=== PATIENT | female | born 1995 | race Caucasian/White ===

== ENCOUNTER 2017-02-13 14:55 | Emergency (ER) | payer OTHER ==
[~2017-02-13] VITALS: Ht 185.4 cm; Wt 85.7 kg
[~2017-02-13 14:55] MED LIST: ADVAIR HFA120 INHALA; BACTRIM,SEPT1 TABLET PO; BUPROPION XL150 MG PO; CLINDAMYCIN HC300 MG PO; DESYREL 150 MG150 MG PO; FOCALIN XR10 MG PO; HYDROCODON-ACE1 EAC7 PO; IBUPROFEN800 MG PO; INTUNIV4 MG PO; LATUDA20 MG PO; LATUDA40 MG PO; MILK OF MAGN PO; MOBIC15 MG PO; MOTRIN600 MG PO; MOTRIN800 MG PO; MULTI-VITAMIN1 EAC3 PO; NAPROXEN500 MG PO; NUVARING VAGIN1 EACH VG; OMEPRAZOLE20 MG PO; PERCOCET 5/31 TABLET PO; PRENATA CHEWAB1 EACH PO; PRENATAL GUMMIES PO; PRILOSEC20 MG PO; PYRIDIUM200 MG PO; TRAZODONE HCL100 MG PO; TRAZODONE HCL50 MG PO; VENTOLIN HFA18 GM IH; VYVANSE20 MG PO; VYVANSE40 MG PO; WELLBUTRIN XL150 MG PO; ZITHROMAX Z-PA250 MG PO; ZOFRAN4 MG PO; ZYRTEC10 M3 PO
[2017-02-13 20:28] LABS: ADD MIUA? YES; BILIRUBIN NEGATIVE; BLOOD NEGATIVE; COLOR YELLOW ((YELLOW)); GLUCOSE (STRIP) NEGATIVE; KETONES 80; LEUKOCYTES LARGE; NITRITE NEGATIVE; PROTEIN (STRIP) NEGATIVE; SPECIFIC GRAVITY 1.006 (1.000-1.030); UROBILINOGEN 0.2 MG/DL (0.2-1.0)
[2017-02-13 21:03] LABS: BACTERIA RARE /HPF; EPITHELIAL CELLS 1+ /HPF; MUCUS TRACE /LPF; RED BLOOD CELLS 0-5 /HPF (0-5); UCUL ADDED? NO
[2017-02-13 21:36] VITALS: BP 115/75
== END 2017-02-13 21:37 | disposition home or self-care (01) ==
LOC: EME 14:55
PROVIDERS: Physician Assistant
DX: O26.893 Other specified pregnancy related conditions, third trimester (principal); N76.89 Other specified inflammation of vagina and vulva; O99.513 Diseases of the respiratory system complicating pregnancy, third trimester; J45.909 Unspecified asthma, uncomplicated; O99.333 Smoking (tobacco) complicating pregnancy, third trimester; F17.200 Nicotine dependence, unspecified, uncomplicated; Z3A.33 33 weeks gestation of pregnancy; Z88.0 Allergy status to penicillin
CPT/HCPCS: 81003; 87086; 99281; 99283

== ENCOUNTER 2017-03-09 14:38 | Outpatient (CLI) | payer OTHER ==
[2017-03-09 14:54] VITALS: BP 89/56
[2017-03-09 15:05] VITALS: BP 98/60
== END 2017-03-09 15:45 | disposition home or self-care (01) ==
LOC: LDRP-OP 14:38 → 2WEST 14:39 → LDRP-OP 04-29 13:55
DX: O47.1 False labor at or after 37 completed weeks of gestation (principal); Z3A.37 37 weeks gestation of pregnancy
CPT/HCPCS: 59025; G0378

== ENCOUNTER 2017-03-28 01:09 | Inpatient (IN) | payer OTHER ==
[2017-03-28] VITALS (10 sets, daily range): BP systolic 102–128; BP diastolic 52–77
[~2017-03-28] VITALS: Ht 185.4 cm; Wt 88.0 kg
[2017-03-28 04:06] LABS: BASOPHIL COUNT 0.1 K/uL (0-0.1); EOSINOPHIL COUNT 0.2 K/uL (0-0.3); HEMATOCRIT 34.6 % (36.0-46.0); IMMATURE GRANULOCYTE COUNT 0.2 K/uL; INSTRUMENT ABS NEUTROPHIL CT 12.8 K/uL; LYMPHOCYTE COUNT 2.2 K/uL (1.0-2.8); MCH 31.3 PG (29.0-34.0); MCHC 34.7 G/DL (30.0-36.0); MCV 90.1 FL (83-99); MEAN PLAT.VOLUME 13.9 uM^3 (9.5-12.4); MONOCYTE (%) 6.1 % (3-12); NEUTROPHIL (%) 77.7 % (45-76); NEUTROPHIL COUNT 12.8 K/uL (1.8-6.4); PLATELET COUNT 125 K/uL (156-360); RBC DIS.WIDTH-CV 14.8 % (11.8-14.6); RBC DIS.WIDTH-SD 48.8 % (39-53); RED BLOOD COUNT 3.84 M/uL (3.80-5.20); WHITE BLOOD COUNT 16.4 K/uL (4.1-10.2)
[2017-03-28 04:19] LABS: AMPHETAMINES QUANT VALUE 0 NG/ML; BARBITUATES QUANT VALUE 0 NG/ML; BENZODIAZEPINES QUANT VALUE 0 NG/ML; BENZODIAZEPINES, URINE SCREEN Negative (200 ng/mL); OPIATES QUANTITATIVE VALUE 0 NG/ML; PHENCYCLIDINE QUANT VALUE 0 NG/ML
[2017-03-28] MEDS ORDERED: IBUPROFEN800 MG PO (08:25)
[2017-03-29 07:20] VITALS: BP 100/53
[2017-03-29 14:59] VITALS: BP 119/70
== END 2017-03-29 18:45 | disposition home or self-care (01) | DRG 775 ==
LOC: LDRP-OP 01:09 → 2WEST 01:10 → LDRP-OP 04-28 20:16
PROVIDERS: Nurse Practitioner; Obstetrics & Gynecology
DX: O99.324 Drug use complicating childbirth (principal); F20.9 Schizophrenia, unspecified; O99.334 Smoking (tobacco) complicating childbirth; O99.344 Other mental disorders complicating childbirth; O99.52 Diseases of the respiratory system complicating childbirth; J45.909 Unspecified asthma, uncomplicated; Z37.0 Single live birth; Z3A.40 40 weeks gestation of pregnancy; F12.90 Cannabis use, unspecified, uncomplicated; F17.210 Nicotine dependence, cigarettes, uncomplicated; O69.81X0 Labor and delivery complicated by cord around neck, without compression, not applicable or unspecified; F31.9 Bipolar disorder, unspecified
CPT/HCPCS: 80306 90; 85025; J7120

== ENCOUNTER 2017-05-07 14:36 | Inpatient (IN) | payer OTHER ==
[~2017-05-07] VITALS: Ht 185.4 cm; Wt 81.7 kg
[2017-05-07 16:13] LABS: ADD MIUA? YES; BILIRUBIN NEGATIVE; BLOOD MODERATE; COLOR YELLOW ((YELLOW)); GLUCOSE (STRIP) NEGATIVE; KETONES 5; LEUKOCYTES LARGE; NITRITE NEGATIVE; PROTEIN (STRIP) 100; SPECIFIC GRAVITY 1.013 (1.000-1.030); UROBILINOGEN 0.2 MG/DL (0.2-1.0)
[2017-05-07 16:17] LABS: HEMATOCRIT 37.9 % (36.0-46.0); MCH 30.8 PG (29.0-34.0); MCHC 34.6 G/DL (30.0-36.0); MCV 89.2 FL (83-99); MEAN PLAT.VOLUME 12.8 uM^3 (9.5-12.4); PLATELET COUNT 149 K/uL (156-360); RBC DIS.WIDTH-CV 13.3 % (11.8-14.6); RBC DIS.WIDTH-SD 43.8 % (39-53); RED BLOOD COUNT 4.25 M/uL (3.80-5.20); WHITE BLOOD COUNT 17.5 K/uL (4.1-10.2)
[2017-05-07 16:21] LABS: ADD MEDTOX COMMENT Y; AMPHETAMINE NEGATIVE (500 ng/mL); BARBITURATES NEGATIVE (200 ng/mL); BENZODIAZEPINES NEGATIVE (150 ng/mL); COCAINE NEGATIVE (150 ng/mL); INTERNAL CONTROLS VALID? YES; METHADONE NEGATIVE (200 ng/mL); METHAMPHETAMINE NEGATIVE (500 ng/mL); OPIATES (MORPHINE) NEGATIVE (100 ng/mL); OXYCODONE NEGATIVE (100 ng/mL); PHENCYCLIDINE NEGATIVE (25 ng/mL); PROPOXYPHENE NEGATIVE (300 ng/mL); THC CANNABINOIDS PRESUMPTIVE POSITIVE (50 ng/mL); TRICYCLIC ANTIDEPRESSANTS NEGATIVE (300 ng/mL)
[2017-05-07 16:27] LABS: CHLORIDE 110 mEq/L (99-109); POTASSIUM 3.8 mEq/L (3.7-5.4); SODIUM 142 mEq/L (136-147)
[2017-05-07 16:29] LABS: GLUCOSE 95 mg/dL (70-99)
[2017-05-07 16:30] LABS: ANION GAP 11 MEQ/L (2-14)
[2017-05-07 16:32] LABS: SERUM ETHYL ALCOHOL < 10 mg/dL
[2017-05-07 16:33] LABS: GFR ESTIMATE (CALCULATED) > 59 mL/min/
[2017-05-07 16:34] LABS: UREA NITROGEN (BUN) 9 mg/dL (9-23)
[2017-05-07 16:36] LABS: LIPASE 12 U/L (1.0-51.0)
[2017-05-07 16:43] LABS: BACTERIA 1+ /HPF; CASTS NONE SEEN /LPF; CRYSTALS NONE SEEN; EPITHELIAL CELLS NONE SEEN /HPF; MUCUS NONE SEEN /LPF; RED BLOOD CELLS 20-30 /HPF (0-5); UCUL ADDED? YES; WHITE BLOOD CELLS 40-50 /HPF (0-5)
[2017-05-07] MEDS ORDERED: JUNEL1 EAC1 PO (16:46)
[2017-05-07 17:23] LABS: QUANTITATIVE HCG < 4.0 MIU/ML
[2017-05-07 21:50] VITALS: BP 103/61
[2017-05-07 23:55] VITALS: BP 108/68
[2017-05-08 03:25] VITALS: BP 118/78
[2017-05-08 07:07] LABS: ANION GAP 7 MEQ/L (2-14); CHLORIDE 112 MEQ/L (99-109); GFR ESTIMATE (CALCULATED) > 59 mL/min/; GLUCOSE 81 mg/dL (70-99); POTASSIUM 3.8 MEQ/L (3.7-5.4); SAMPLE HEMOLYSIS CHECK 0; SAMPLE ICTERIC CHECK 0; SAMPLE LIPEMIA CHECK 0; SODIUM 141 MEQ/L (136-147); UREA NITROGEN (BUN) 10 mg/dL (9-23)
[2017-05-08 07:13] LABS: HEMATOCRIT 32.9 % (36.0-46.0); MCH 31.1 PG (29.0-34.0); MCHC 33.7 G/DL (30.0-36.0); MCV 92.2 FL (83-99); MEAN PLAT.VOLUME 13.3 uM^3 (9.5-12.4); PLATELET COUNT 128 K/uL (156-360); RBC DIS.WIDTH-CV 13.7 % (11.8-14.6); RBC DIS.WIDTH-SD 46.5 % (39-53); RED BLOOD COUNT 3.57 M/uL (3.80-5.20); WHITE BLOOD COUNT 10.3 K/uL (4.1-10.2)
[2017-05-08 07:43] VITALS: BP 125/78
[2017-05-08 11:37] VITALS: BP 130/77
[2017-05-08 15:15] VITALS: BP 113/68
[2017-05-08 19:12] VITALS: BP 120/83
[2017-05-08 23:53] VITALS: BP 122/68
[2017-05-09 03:19] VITALS: BP 112/61
[2017-05-09 06:46] LABS: BASOPHIL COUNT 0.1 K/uL (0-0.1); EOSINOPHIL (%) 1.5 % (0-5); EOSINOPHIL COUNT 0.1 K/uL (0-0.3); IMMATURE GRANULOCYTE (%) 0.5 % (0.0-0.7); INSTRUMENT ABS NEUTROPHIL CT 5.2 K/uL; LYMPHOCYTE COUNT 1.5 K/uL (1.0-2.8); MCH 31.8 PG (29.0-34.0); MCHC 35.3 G/DL (30.0-36.0); MCV 90.2 FL (83-99); MEAN PLAT.VOLUME 13.2 uM^3 (9.5-12.4); MONOCYTE (%) 12.3 % (3-12); NEUTROPHIL (%) 65.7 % (45-76); NEUTROPHIL COUNT 5.2 K/uL (1.8-6.4); PLATELET COUNT 130 K/uL (156-360); RBC DIS.WIDTH-CV 13.2 % (11.8-14.6); RBC DIS.WIDTH-SD 43.5 % (39-53); RED BLOOD COUNT 3.99 M/uL (3.80-5.20); WHITE BLOOD COUNT 7.9 K/uL (4.1-10.2)
[2017-05-09 07:18] LABS: ANION GAP 9 MEQ/L (2-14); CHLORIDE 107 MEQ/L (99-109); GFR ESTIMATE (CALCULATED) > 59 mL/min/; GLUCOSE 84 mg/dL (70-99); POTASSIUM 3.3 MEQ/L (3.7-5.4); SAMPLE HEMOLYSIS CHECK 0; SAMPLE ICTERIC CHECK 0; SAMPLE LIPEMIA CHECK 0; SODIUM 139 MEQ/L (136-147); UREA NITROGEN (BUN) 6 mg/dL (9-23)
[2017-05-09 08:11] VITALS: BP 115/70
[2017-05-09 11:36] VITALS: BP 109/69
[2017-05-09 16:42] VITALS: BP 135/66
[2017-05-09 19:18] VITALS: BP 112/71
[2017-05-09 23:21] VITALS: BP 113/70
[2017-05-10 03:01] VITALS: BP 114/76
[2017-05-10 08:34] VITALS: BP 99/54
[2017-05-10 11:08] LABS: HEMATOCRIT 36.3 % (36.0-46.0); MCH 31.6 PG (29.0-34.0); MCHC 35.3 G/DL (30.0-36.0); MCV 89.6 FL (83-99); RBC DIS.WIDTH-CV 13.4 % (11.8-14.6); RBC DIS.WIDTH-SD 44.5 % (39-53); RED BLOOD COUNT 4.05 M/uL (3.80-5.20); WHITE BLOOD COUNT 6.5 K/uL (4.1-10.2)
[2017-05-10 11:49] LABS: ANION GAP 6 MEQ/L (2-14); CHLORIDE 109 MEQ/L (99-109); GFR ESTIMATE (CALCULATED) > 59 mL/min/; GLUCOSE 105 mg/dL (70-99); POTASSIUM 3.8 MEQ/L (3.7-5.4); SAMPLE HEMOLYSIS CHECK 0; SAMPLE ICTERIC CHECK 0; SAMPLE LIPEMIA CHECK 0; SODIUM 143 MEQ/L (136-147); UREA NITROGEN (BUN) 10 mg/dL (9-23)
[2017-05-10 11:55] LABS: MEAN PLAT.VOLUME 12.6 uM^3 (9.5-12.4); PLAT.SUFFICIENCY ADEQUATE; PLATELET COUNT 154 K/uL (156-360)
[2017-05-10 12:27] VITALS: BP 100/56
[2017-05-10] MEDS ORDERED: SUPRAX400 M1 PO (14:06)
[2017-05-10 16:29] VITALS: BP 126/69
== END 2017-05-10 17:10 | disposition home or self-care (01) | DRG 872 ==
LOC: EME 14:36 → 3EAST 20:28 → EDOF 20:28 → ENRESERV 20:32 → 3EAST 21:40
PROVIDERS: Emergency Medicine; Hospitalist; Physician Assistant
DX: A41.9 Sepsis, unspecified organism (principal); N10 Acute pyelonephritis; F20.9 Schizophrenia, unspecified; F31.9 Bipolar disorder, unspecified; J45.909 Unspecified asthma, uncomplicated; Z90.49 Acquired absence of other specified parts of digestive tract; F12.90 Cannabis use, unspecified, uncomplicated; F17.210 Nicotine dependence, cigarettes, uncomplicated
CPT/HCPCS: 80048; 81003; 83605; 83690; 84702; 84999; 85025; 85027; 87040; 87077; 87086; 87186; 99202; 99281; 99285; G0480; J0696; J1650; J1885; J7030; J7050

== ENCOUNTER 2017-08-04 19:52 | Emergency (ER) | payer OTHER ==
[~2017-08-04] VITALS: Ht 185.4 cm; Wt 74.3 kg
[~2017-08-04 19:52] MED LIST changes: +JUNEL1 EAC1 PO; +SUPRAX400 M1 PO
[2017-08-04 20:14] LABS: ADD MIUA? YES; BILIRUBIN NEGATIVE; BLOOD NEGATIVE; COLOR YELLOW ((YELLOW)); GLUCOSE (STRIP) NEGATIVE; KETONES NEGATIVE; LEUKOCYTES TRACE; NITRITE NEGATIVE; PROTEIN (STRIP) NEGATIVE; SPECIFIC GRAVITY 1.019 (1.000-1.030); UROBILINOGEN 0.2 MG/DL (0.2-1.0)
[2017-08-04 20:16] LABS: HEMATOCRIT 40.3 % (36.0-46.0); MCH 31.6 PG (29.0-34.0); MCHC 35.2 G/DL (30.0-36.0); MCV 89.6 FL (83-99); RBC DIS.WIDTH-CV 13.3 % (11.8-14.6); RBC DIS.WIDTH-SD 43.8 % (39-53); WHITE BLOOD COUNT 8.3 K/uL (4.1-10.2)
[2017-08-04 20:17] LABS: BACTERIA NONE SEEN /HPF; EPITHELIAL CELLS RARE /HPF; MUCUS 2+ /LPF; RED BLOOD CELLS 0-5 /HPF (0-5); UCUL ADDED? NO; WHITE BLOOD CELLS 0-5 /HPF (0-5)
[2017-08-04 20:29] LABS: CHLORIDE 110 mEq/L (99-109); POTASSIUM 3.9 mEq/L (3.7-5.4); SODIUM 145 mEq/L (136-147)
[2017-08-04 20:31] LABS: GLUCOSE 85 mg/dL (70-99)
[2017-08-04 20:32] LABS: ANION GAP 12 MEQ/L (2-14)
[2017-08-04 20:33] LABS: TOTAL BILIRUBIN 0.8 mg/dL (0.0-1.0)
[2017-08-04 20:35] LABS: ALKALINE PHOSPHATASE 75 IU/L (3-129); GFR ESTIMATE (CALCULATED) > 59 mL/min/
[2017-08-04 20:36] LABS: UREA NITROGEN (BUN) 8 mg/dL (9-23)
[2017-08-04 20:38] LABS: LIPASE 29 U/L (1.0-51.0)
[2017-08-04 20:44] LABS: QUANTITATIVE HCG < 4.0 MIU/ML
[2017-08-04 21:01] LABS: HEMATOLOGY COMMENT 1 SN; MEAN PLAT.VOLUME 12.2 uM^3 (9.5-12.4); PLAT.SUFFICIENCY ADEQUATE; PLATELET COUNT 194 K/uL (156-360)
[2017-08-04] MEDS ORDERED: PERCOCET 5/31 TABLET PO (23:43)
[2017-08-04] MEDS ORDERED: VIBRAMYCIN100 MG PO (23:43)
[2017-08-04] MEDS ORDERED: ZOFRAN ODT4 MG PO (23:43)
[2017-08-04] MEDS ORDERED: FLAGYL500 MG PO (23:43)
[2017-08-05 00:23] VITALS: BP 112/68
[2017-08-07 12:39] LABS: CHLAMYDIA TRACHOMATIS NEGATIVE; NEISSERIA GONORRHOEAE NEGATIVE
== END 2017-08-05 00:42 | disposition home or self-care (01) ==
LOC: EME 19:52
PROVIDERS: Physician Assistant
DX: N73.9 Female pelvic inflammatory disease, unspecified (principal); K21.9 Gastro-esophageal reflux disease without esophagitis; J45.909 Unspecified asthma, uncomplicated; F41.9 Anxiety disorder, unspecified; F32.9 Major depressive disorder, single episode, unspecified; F31.9 Bipolar disorder, unspecified; F20.9 Schizophrenia, unspecified; F90.9 Attention-deficit hyperactivity disorder, unspecified type; F17.200 Nicotine dependence, unspecified, uncomplicated; Z90.49 Acquired absence of other specified parts of digestive tract; Z88.0 Allergy status to penicillin; Z88.5 Allergy status to narcotic agent
CPT/HCPCS: 74176; 80053; 81003; 83690; 84702; 85027; 87210; 87491; 87591; 99281; 99284

== ENCOUNTER 2017-08-11 16:52 | Emergency (ER) | payer OTHER ==
[~2017-08-11] VITALS: Ht 185.4 cm; Wt 77.2 kg
[~2017-08-11 16:52] MED LIST changes: +FLAGYL500 MG PO; +VIBRAMYCIN100 MG PO; +ZOFRAN ODT4 MG PO
[2017-08-11 17:54] LABS: HEMATOCRIT 38.7 % (36.0-46.0); MCH 31.7 PG (29.0-34.0); MCHC 34.9 G/DL (30.0-36.0); MCV 90.8 FL (83-99); MEAN PLAT.VOLUME 13.2 uM^3 (9.5-12.4); PLATELET COUNT 169 K/uL (156-360); RBC DIS.WIDTH-CV 13.5 % (11.8-14.6); RBC DIS.WIDTH-SD 45.1 % (39-53); RED BLOOD COUNT 4.26 M/uL (3.80-5.20); WHITE BLOOD COUNT 7.1 K/uL (4.1-10.2)
[2017-08-11 18:10] LABS: CHLORIDE 110 mEq/L (99-109); POTASSIUM 4.4 mEq/L (3.7-5.4); SODIUM 143 mEq/L (136-147)
[2017-08-11 18:12] LABS: GLUCOSE 86 mg/dL (70-99)
[2017-08-11 18:14] LABS: ANION GAP 6 MEQ/L (2-14)
[2017-08-11 18:15] LABS: TOTAL BILIRUBIN 0.4 mg/dL (0.0-1.0)
[2017-08-11 18:16] LABS: ALKALINE PHOSPHATASE 70 IU/L (3-129); GFR ESTIMATE (CALCULATED) > 59 mL/min/
[2017-08-11 18:17] LABS: UREA NITROGEN (BUN) 7 mg/dL (9-23)
[2017-08-11 18:22] LABS: ADD MIUA? YES; BILIRUBIN NEGATIVE; BLOOD SMALL; COLOR YELLOW ((YELLOW)); GLUCOSE (STRIP) NEGATIVE; KETONES NEGATIVE; LEUKOCYTES NEGATIVE; NITRITE NEGATIVE; PROTEIN (STRIP) NEGATIVE; SPECIFIC GRAVITY 1.013 (1.000-1.030); UROBILINOGEN 0.2 MG/DL (0.2-1.0)
[2017-08-11 18:28] LABS: QUANTITATIVE HCG < 4.0 MIU/ML
[2017-08-11 18:30] LABS: BACTERIA NONE SEEN /HPF; EPITHELIAL CELLS RARE /HPF; MUCUS TRACE /LPF; RED BLOOD CELLS 0-5 /HPF (0-5); UCUL ADDED? NO; WHITE BLOOD CELLS 0-5 /HPF (0-5)
[2017-08-11 18:44] LABS: LIPASE 22 U/L (1.0-51.0)
[2017-08-11] MEDS ORDERED: BENTYL10 MG PO (21:59)
[2017-08-11 22:18] VITALS: BP 99/53
== END 2017-08-11 22:40 | disposition home or self-care (01) ==
LOC: EME 16:52
DX: R10.30 Lower abdominal pain, unspecified (principal); R11.0 Nausea; R19.7 Diarrhea, unspecified; Z90.49 Acquired absence of other specified parts of digestive tract; J45.909 Unspecified asthma, uncomplicated; F17.200 Nicotine dependence, unspecified, uncomplicated
CPT/HCPCS: 76856; 80053; 81003; 83690; 84702; 85027; 99281; 99284; J1885

== ENCOUNTER 2018-01-01 17:28 | Emergency (ER) | payer OTHER ==
[~2018-01-01] VITALS: Ht 185.4 cm; Wt 70.9 kg
[~2018-01-01 17:28] MED LIST changes: +BENTYL10 MG PO
[2018-01-01 17:59] LABS: HEMATOCRIT 43.2 % (36.0-46.0); MCH 32.5 PG (29.0-34.0); MCHC 36.1 G/DL (30.0-36.0); PLATELET COUNT 168 K/uL (156-360); RBC DIS.WIDTH-CV 13.5 % (11.8-14.6); RBC DIS.WIDTH-SD 44.3 % (39-53); WHITE BLOOD COUNT 11.1 K/uL (4.1-10.2)
[2018-01-01 18:00] LABS: HEMOGLOBIN 15.6 G/DL (11.9-15.5)
[2018-01-01 18:18] LABS: ALBUMIN 4.7 G/DL (3.2-4.8); CHLORIDE 107 MEQ/L (99-109); POTASSIUM 3.8 MEQ/L (3.7-5.4); SODIUM 140 MEQ/L (136-147)
[2018-01-01 18:21] LABS: TOTAL BILIRUBIN 0.8 MG/DL (0.0-1.0)
[2018-01-01 18:24] LABS: ALKALINE PHOSPHATASE 68 IU/L (3-129); ALT (GPT) 10 IU/L (3-49); AST (GOT) 14 IU/L (2-34); CREATININE 0.7 MG/DL (0.6-1.3); GFR ESTIMATE (CALCULATED) > 59 mL/min/; GLUCOSE 95 mg/dL (70-99); UREA NITROGEN (BUN) 9 mg/dL (9-23)
[2018-01-01 18:46] LABS: QUANTITATIVE HCG < 4.0 MIU/ML
[2018-01-01 20:00] LABS: APPEARANCE CLEAR ((CLEAR)); BILIRUBIN NEGATIVE; BLOOD NEGATIVE; COLOR YELLOW ((YELLOW)); GLUCOSE (STRIP) NEGATIVE; KETONES 80; LEUKOCYTES NEGATIVE; NITRITE NEGATIVE; PROTEIN (STRIP) NEGATIVE; SPECIFIC GRAVITY 1.024 (1.000-1.030); UCUL ADDED? NO
[2018-01-01] MEDS ORDERED: ZOFRAN ODT4 MG PO (20:09)
[2018-01-01] MEDS ORDERED: BENTYL10 MG PO (20:09)
[2018-01-01 20:27] VITALS: BP 117/83
== END 2018-01-01 20:30 | disposition home or self-care (01) ==
LOC: EME 17:28
DX: R10.31 Right lower quadrant pain (principal); K52.9 Noninfective gastroenteritis and colitis, unspecified; R30.0 Dysuria; M54.9 Dorsalgia, unspecified; Z90.49 Acquired absence of other specified parts of digestive tract; J45.909 Unspecified asthma, uncomplicated; Z88.0 Allergy status to penicillin; F17.200 Nicotine dependence, unspecified, uncomplicated; Z79.3 Long term (current) use of hormonal contraceptives
CPT/HCPCS: 74176; 80053; 81003; 84702; 85027; 99281; 99285; J1885; J2405; J3010; J7030

== ENCOUNTER 2018-02-08 06:38 | Day surgery (SDC) | payer OTHER ==
[~2018-02-08] VITALS: Ht 185.4 cm; Wt 69.4 kg
[~2018-02-08 06:38] MED LIST changes: +DESYREL100 MG PO; +FLOVENT 44120 INHALA IH; +HYOSCYAMINE0.125 MG PO; +NASAL ALLERGY16.9 ML BOTH NARES; +NEXPLANON68 MG SC; +PRENATAL TABLE1 EAC3 PO; +PROAIR HFA8.5 GM IH; +WELLBUTRIN75 MG PO
[2018-02-08 07:20] VITALS: BP 108/64
[2018-02-08] MEDS ORDERED: ENDOCET 5-3251 EACH PO (08:27)
[2018-02-08] MEDS ORDERED: IBUPROFEN800 MG PO (08:27)
[2018-02-08 12:30] VITALS: BP 104/66
[2018-02-08 13:30] VITALS: BP 111/57
[2018-02-08 14:15] VITALS: BP 100/57
== END 2018-02-08 14:20 | disposition home or self-care (01) ==
LOC: SDC 06:38
DX: N92.0 Excessive and frequent menstruation with regular cycle (principal); G89.29 Other chronic pain; R10.2 Pelvic and perineal pain; Z30.46 Encounter for surveillance of implantable subdermal contraceptive; K58.9 Irritable bowel syndrome, unspecified; K21.9 Gastro-esophageal reflux disease without esophagitis; J45.990 Exercise induced bronchospasm; Z90.49 Acquired absence of other specified parts of digestive tract
CPT/HCPCS: 88307; 93005; J0131; J0330; J0690; J1100; J1170; J1885; J2405; J2795; J3010; Q0175

== ENCOUNTER 2018-04-05 19:37 | Emergency (ER) | payer OTHER ==
[~2018-04-05] VITALS: Ht 175.3 cm; Wt 71.2 kg
[~2018-04-05 19:37] MED LIST changes: +ENDOCET 5-3251 EACH PO
[2018-04-05 20:40] LABS: HEMOGLOBIN 13.5 G/DL (11.9-15.5); MCH 31.7 PG (29.0-34.0); MCHC 34.6 G/DL (30.0-36.0); MCV 91.5 FL (83-99); RBC DIS.WIDTH-CV 14.1 % (11.8-14.6); RBC DIS.WIDTH-SD 46.8 % (39-53); RED BLOOD COUNT 4.26 M/uL (3.80-5.20); WHITE BLOOD COUNT 12.4 K/uL (4.1-10.2)
[2018-04-05 20:43] LABS: CHLORIDE 109 mEq/L (99-109); POTASSIUM 3.7 mEq/L (3.7-5.4); SODIUM 142 mEq/L (136-147)
[2018-04-05 20:45] LABS: GLUCOSE 84 mg/dL (70-99)
[2018-04-05 20:48] LABS: SERUM ETHYL ALCOHOL < 10 mg/dL
[2018-04-05 20:49] LABS: CREATININE 0.9 mg/dL (0.6-1.3); GFR ESTIMATE (CALCULATED) > 59 mL/min/
[2018-04-05 20:50] LABS: UREA NITROGEN (BUN) 11 mg/dL (9-23)
[2018-04-05 20:57] LABS: QUANTITATIVE HCG < 4.0 MIU/ML
[2018-04-05 21:13] LABS: AMPHETAMINE NEGATIVE (500 ng/mL); BARBITURATES NEGATIVE (200 ng/mL); BENZODIAZEPINES NEGATIVE (150 ng/mL); BUPRENORPHINE NEGATIVE (10 ng/mL); COCAINE NEGATIVE (150 ng/mL); METHADONE NEGATIVE (200 ng/mL); METHAMPHETAMINE NEGATIVE (500 ng/mL); OPIATES (MORPHINE) NEGATIVE (100 ng/mL); OXYCODONE NEGATIVE (100 ng/mL); PHENCYCLIDINE NEGATIVE (25 ng/mL); PROPOXYPHENE NEGATIVE (300 ng/mL); THC CANNABINOIDS PRESUMPTIVE POSITIVE (50 ng/mL); TRICYCLIC ANTIDEPRESSANTS NEGATIVE (300 ng/mL)
[2018-04-05 22:09] VITALS: BP 122/76
[2018-04-05 23:00] LABS: PLAT.SUFFICIENCY ADEQUATE; PLATELET COUNT 226 K/uL (156-360)
[2018-04-06] MEDS ORDERED: WELLBUTRIN XL300 MG PO (17:08)
[2018-04-06] MEDS ORDERED: FOCALIN XR15 M1 PO (17:08)
[2018-04-06] MEDS ORDERED: ABILIFY5 MG PO (17:09)
[2018-04-06] MEDS ORDERED: ZYRTEC10 M3 PO (17:09)
[2018-04-06] MEDS ORDERED: VISINE ADVANCED15 ML BOTH EYES (17:09)
[2018-04-06] MEDS ORDERED: GUMMI BEAR MUL1 EACH PO (17:10)
== END 2018-04-05 22:10 | disposition home or self-care (01) ==
LOC: EME 19:37
DX: F32.9 Major depressive disorder, single episode, unspecified (principal); F41.9 Anxiety disorder, unspecified; F31.9 Bipolar disorder, unspecified; F90.9 Attention-deficit hyperactivity disorder, unspecified type; F20.9 Schizophrenia, unspecified; K21.9 Gastro-esophageal reflux disease without esophagitis; F17.200 Nicotine dependence, unspecified, uncomplicated; Z90.49 Acquired absence of other specified parts of digestive tract; Z88.0 Allergy status to penicillin; Z88.5 Allergy status to narcotic agent
CPT/HCPCS: 80048; 84702; 84999; 85027; 90839; 99281; 99285; G0480

== ENCOUNTER 2018-04-06 11:28 | Inpatient (IN) | payer SELFPAY ==
[~2018-04-06] VITALS: Ht 185.4 cm; Wt 69.9 kg
[2018-04-06 12:53] LABS: HEMATOCRIT 37.6 % (36.0-46.0); HEMOGLOBIN 13.3 G/DL (11.9-15.5); MCH 32.1 PG (29.0-34.0); MCHC 35.4 G/DL (30.0-36.0); MCV 90.8 FL (83-99); PLATELET COUNT 216 K/uL (156-360); RBC DIS.WIDTH-CV 13.9 % (11.8-14.6); RBC DIS.WIDTH-SD 46.5 % (39-53); RED BLOOD COUNT 4.14 M/uL (3.80-5.20); WHITE BLOOD COUNT 7.2 K/uL (4.1-10.2)
[2018-04-06 12:59] LABS: APPEARANCE CLEAR ((CLEAR)); BILIRUBIN NEGATIVE; BLOOD NEGATIVE; COLOR YELLOW ((YELLOW)); GLUCOSE (STRIP) NEGATIVE; KETONES 5; LEUKOCYTES NEGATIVE; NITRITE NEGATIVE; PROTEIN (STRIP) NEGATIVE; SPECIFIC GRAVITY 1.025 (1.000-1.030); UCUL ADDED? NO
[2018-04-06 13:08] LABS: AMPHETAMINE NEGATIVE (500 ng/mL); BARBITURATES NEGATIVE (200 ng/mL); BENZODIAZEPINES NEGATIVE (150 ng/mL); BUPRENORPHINE NEGATIVE (10 ng/mL); COCAINE NEGATIVE (150 ng/mL); METHADONE NEGATIVE (200 ng/mL); METHAMPHETAMINE NEGATIVE (500 ng/mL); OPIATES (MORPHINE) NEGATIVE (100 ng/mL); OXYCODONE NEGATIVE (100 ng/mL); PHENCYCLIDINE NEGATIVE (25 ng/mL); PROPOXYPHENE NEGATIVE (300 ng/mL); THC CANNABINOIDS PRESUMPTIVE POSITIVE (50 ng/mL); TRICYCLIC ANTIDEPRESSANTS NEGATIVE (300 ng/mL)
[2018-04-06 13:25] LABS: CHLORIDE 107 MEQ/L (99-109); SODIUM 141 MEQ/L (136-147)
[2018-04-06 13:30] LABS: CREATININE 0.8 MG/DL (0.6-1.3); GFR ESTIMATE (CALCULATED) > 59 mL/min/; GLUCOSE 94 mg/dL (70-99); UREA NITROGEN (BUN) 13 mg/dL (9-23)
[2018-04-06] MEDS ORDERED: FOCALIN XR15 M1 PO (17:08)
[2018-04-06] MEDS ORDERED: WELLBUTRIN XL300 MG PO (17:08)
[2018-04-06] MEDS ORDERED: VISINE ADVANCED15 ML BOTH EYES (17:09)
[2018-04-06] MEDS ORDERED: ABILIFY5 MG PO (17:09)
[2018-04-06] MEDS ORDERED: ZYRTEC10 M3 PO (17:09)
[2018-04-06] MEDS ORDERED: GUMMI BEAR MUL1 EACH PO (17:10)
[2018-04-06 17:44] VITALS: BP 123/75
[2018-04-06 17:46] VITALS: BP 123/75
[2018-04-07 07:53] VITALS: BP 97/51
[2018-04-07 16:29] VITALS: BP 102/59
[2018-04-08 09:43] VITALS: BP 116/56
[2018-04-08 16:13] VITALS: BP 97/49
[2018-04-09 07:48] VITALS: BP 113/57
[2018-04-09 16:55] VITALS: BP 107/55
[2018-04-10 08:02] VITALS: BP 99/52
== END 2018-04-10 11:31 | disposition home or self-care (01) | DRG 897 ==
LOC: EME 11:28 → EDOF 14:00 → 1WEST 14:00 → ENRESERV 17:32 → 1WEST 04-10 11:31
PROVIDERS: Emergency Medicine
DX: F11.23 Opioid dependence with withdrawal (principal); R45.851 Suicidal ideations; F10.10 Alcohol abuse, uncomplicated; F32.9 Major depressive disorder, single episode, unspecified; F13.239 Sedative, hypnotic or anxiolytic dependence with withdrawal, unspecified; F41.9 Anxiety disorder, unspecified; F12.90 Cannabis use, unspecified, uncomplicated; F17.210 Nicotine dependence, cigarettes, uncomplicated; J45.909 Unspecified asthma, uncomplicated; K21.9 Gastro-esophageal reflux disease without esophagitis; F90.9 Attention-deficit hyperactivity disorder, unspecified type; Y90.0 Blood alcohol level of less than 20 mg/100 ml; Z91.5 Personal history of self-harm
CPT/HCPCS: 80048; 81003; 84702; 84999; 85027; 90839; 94640; 94760; 94799; 97150 GO; 97165 GO; 99281; 99285; G0480; Q0169; Q0177

== ENCOUNTER 2018-04-14 12:18 | Emergency (ER) | payer SELFPAY ==
[~2018-04-14] VITALS: Ht 185.4 cm; Wt 68.5 kg
[~2018-04-14 12:18] MED LIST changes: +ABILIFY5 MG PO; +FOCALIN XR15 M1 PO; +GUMMI BEAR MUL1 EACH PO; +VISINE ADVANCED15 ML BOTH EYES; +WELLBUTRIN XL300 MG PO
[2018-04-14 13:16] LABS: APPEARANCE CLEAR ((CLEAR)); BILIRUBIN NEGATIVE; BLOOD NEGATIVE; COLOR YELLOW ((YELLOW)); GLUCOSE (STRIP) NEGATIVE; KETONES NEGATIVE; LEUKOCYTES NEGATIVE; NITRITE NEGATIVE; PROTEIN (STRIP) NEGATIVE; SPECIFIC GRAVITY 1.018 (1.000-1.030); UCUL ADDED? NO
[2018-04-14 13:45] LABS: HEMATOCRIT 37.8 % (36.0-46.0); HEMOGLOBIN 13.2 G/DL (11.9-15.5); MCH 32.1 PG (29.0-34.0); MCHC 34.9 G/DL (30.0-36.0); RBC DIS.WIDTH-CV 13.7 % (11.8-14.6); RBC DIS.WIDTH-SD 46.1 % (39-53); RED BLOOD COUNT 4.11 M/uL (3.80-5.20); WHITE BLOOD COUNT 7.5 K/uL (4.1-10.2)
[2018-04-14 13:57] LABS: SOURCE SWAB
[2018-04-14 13:58] LABS: CHLORIDE 109 mEq/L (99-109); POTASSIUM 4.2 mEq/L (3.7-5.4); SODIUM 142 mEq/L (136-147)
[2018-04-14 13:59] LABS: GLUCOSE 83 mg/dL (70-99)
[2018-04-14 14:03] LABS: CREATININE 0.8 mg/dL (0.6-1.3); GFR ESTIMATE (CALCULATED) > 59 mL/min/
[2018-04-14 14:04] LABS: UREA NITROGEN (BUN) 10 mg/dL (9-23)
[2018-04-14 14:14] VITALS: BP 107/70
[2018-04-14 14:54] LABS: HEMATOLOGY COMMENT 1 SMEAR COMPATIBLE; PLAT.SUFFICIENCY ADEQUATE; PLATELET COUNT 227 K/uL (156-360)
== END 2018-04-14 14:14 | disposition home or self-care (01) ==
LOC: EME 12:18
PROVIDERS: Physician Assistant
DX: N94.10 Unspecified dyspareunia (principal); F20.9 Schizophrenia, unspecified; Z90.710 Acquired absence of both cervix and uterus; J45.909 Unspecified asthma, uncomplicated; K21.9 Gastro-esophageal reflux disease without esophagitis; F90.9 Attention-deficit hyperactivity disorder, unspecified type; Z90.49 Acquired absence of other specified parts of digestive tract; F17.200 Nicotine dependence, unspecified, uncomplicated; Z88.5 Allergy status to narcotic agent; Z88.0 Allergy status to penicillin
CPT/HCPCS: 80048; 81003; 85027; 87210; 87491; 87591; 99281; 99284

== ENCOUNTER 2018-04-22 21:26 | Emergency (ER) | payer OTHER ==
[~2018-04-22] VITALS: Ht 182.9 cm; Wt 70.7 kg
[2018-04-23] MEDS ORDERED: NAPROSYN500 MG PO (00:21)
[2018-04-23 00:38] VITALS: BP 116/75
== END 2018-04-23 00:39 | disposition home or self-care (01) ==
LOC: EME 21:26
DX: S93.401A Sprain of unspecified ligament of right ankle, initial encounter (principal); Y04.2XXA Assault by strike against or bumped into by another person, initial encounter; Z88.5 Allergy status to narcotic agent; Z88.0 Allergy status to penicillin
CPT/HCPCS: 73610; 99281; 99284; L4350